=== PATIENT | male | born 1950 | race Caucasian/White ===

== ENCOUNTER → 2018-05-30 | Outpatient (CLI) | payer MEDICARE, BC ==
--- NOTE | 2018-05-30 16:36 | CONS ---
CONSULTATION REASON FOR CONSULTATION: Sleep apnea. This patient is 68. He is coming in accompanied by his due to concerns about sleep apnea. This sleep evaluation was requested by his information manager, who wanted to rule out any other alternative causes causing significant hypertension. The patient does snore; however, he does not have any significant hypersomnia or sleepiness during the day. He wakes up refreshed after sleeping around 8 to 9 hours. He goes to bed around 9 p.m., wakes up at 6:30 a.m. in the morning. It takes him a few minutes to fall asleep, and his sleep is at times fragmented, mainly to urinate. No sleep paralysis. No hallucinations. No cataplexy. He sleeps on his side. He does occasionally take a nap in the afternoon. He used to work at the [employer] and he has also worked in a retirement. Currently he is retired. He is having blood pressure issues, and the patient is on different blood pressure medications for blood pressure control. He had a CVA back in 2016 which caused some expressive aphasia and right-sided weakness. Currently he is adequately rehabilitated and he is ambulating. His speech is also improved. Since his CVA he is feeling a bit more tired and fatigued. He has also hypertension, as mentioned, and diabetes mellitus. PAST MEDICAL HISTORY: 1. 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 2. Hypertension. 3. Impaired hearing. 4. Diabetes mellitus. SURGICAL HISTORY: 1. Broken femur with ORIF back in 2015. 2. Right knee replacement. DRUG ALLERGIES: NOT KNOWN. OUTPATIENT MEDICATION LIST: 1. Prilosec 20 daily. 2. Losartan/hydrochlorothiazide 100/25 one tablet a day. 3. Motrin 800 t.i.d. 4. Clonidine 0.3 t.i.d. 5. Aspirin 81 a day. 6. Metformin 1 gram b.i.d. . 7. Norvasc 10 daily. 8. Amaryl 2 mg p.o. b.i.d. SOCIAL HISTORY: The patient is an ex-smoker. No history of alcoholism. No history of IV drugs. FAMILY HISTORY: Negative for sleep apnea. REVIEW OF SYSTEMS: Twelve-point review of systems was done. Positive findings are all mentioned above in the history of present illness. His gait is still unsteady, as the patient is having right-sided weakness. He has some minimal expressive aphasia still. No grinding of the teeth. No restlessness in the lower extremities. No anxiety or panic attacks. No palpitation or heartburn. No grinding of the teeth. No nocturia. No memory problems or concentration problems. No open wounds or sores. No sweating. No weight loss. No altered mentation. No episodes of hypoglycemia. No other complaints. PHYSICAL EXAMINATION: BP is 177/96, pulse 74, respirations 16, temperature 97.9, saturation 97% on room air. Weight is 182. Height is 5 feet 4 inches, BMI 31.2. Vienna score is 15. Neck size 16- 1/4. GENERAL APPEARANCE: Calm, comfortable. Head is atraumatic, normocephalic. NECK: Supple. No JVD. No goiter or neck masses. LUNGS: Diminished breath sounds bilaterally. HEART: Heart sounds are regular rate and rhythm. Normal S1, S2. No S3, S4. No murmurs. ABDOMEN: Soft, nontender. No organomegaly. EXTREMITIES: No edema. No cyanosis or clubbing. IMPRESSION: 1. Obstructive sleep apnea clinically suspected, under investigation. 2. Chronic fatigue and sleepiness. Vienna Score is 15. 3. Snoring with some occasional nocturnal apneas. 4. Refractory hypertension, currently on 4 different blood pressure medications, including a diuretic, and the blood pressure remains elevated. Rule out underlying obstructive sleep apnea contributing to this refractory hypertension. 5. History of cerebrovascular accident with expressive aphasia and right-sided weakness. 6. Diabetes mellitus. 7. Impaired hearing. PLAN: 1. Tight control of cardiovascular risk factors. 2. Sleep hygiene measures are in general adequate. 3. Cut down on salt intake. 4. Proceed with a screening polysomnogram, looking for any significant sleep breathing disorder contributing to this patient's refractory hypertension and the rest of the symptoms. Will continue to follow. MMODL / IJN: [id number] /
== END | disposition home or self-care (01) ==
LOC: SLEEP 14:23
PROVIDERS: ATTEND Internal Medicine Critical Care Medicine
DX: G47.30 Sleep apnea, unspecified (principal); R06.83 Snoring; R53.82 Chronic fatigue, unspecified; I10 Essential (primary) hypertension; I69.320 Aphasia following cerebral infarction; R53.1 Weakness; E11.9 Type 2 diabetes mellitus without complications; H91.90 Unspecified hearing loss, unspecified ear; Z96.651 Presence of right artificial knee joint; Z98.890 Other specified postprocedural states; Z79.1 Long term (current) use of non-steroidal anti-inflammatories (NSAID); Z79.82 Long term (current) use of aspirin; Z79.84 Long term (current) use of oral hypoglycemic drugs; Z87.891 Personal history of nicotine dependence; Z79.899 Other long term (current) drug therapy
CPT/HCPCS: 99211

== ENCOUNTER 2018-11-18 17:48 | Emergency (ER) | payer MEDICARE, BC ==
[2018-11-18 17:53] VITALS: RESP 16; TEMP 97.9
[2018-11-18] MEDS ORDERED: MAG HYDROX/AL HYDROX/SIMETH 30 ML, HYOSCYAMINE ELIXIR 10 ML, CIMETIDINE HCL 300 MG, LID... PO STA ×4 (18:25)
--- NOTE | 2018-11-18 18:28 | ED ---
General Adult HPI - General Chief complaint: Chest Pain Stated complaint: chest pain Time Seen by Provider: 11/18/18 18:09 Source: patient Mode of arrival: wheelchair Limitations: no limitations - History of Present Illness Initial comments: Dictation was produced using [employer] dictation software. please excuse any grammatical, word or spelling errors. Chief Complaint: 68-year-old male past nuchal history of cancer, diabetes, dyslipidemia presents with abdominal pain and chest burning. History of Present Illness: Patient 68-year-old male. He states he's been having symptoms of chest burning since today. With past couple weeks he's been having some abdominal symptoms. Couple episodes of diarrhea. States that his pain is in his epigastric area radiates upwards into his chest. States that his symptoms are worse with eating. He describes his symptoms as burning in his chest. States that when he does any he feels okay. He has history of appendectomy and pelvic graft surgery for a nonhealing femur fracture. The ROS documented in this emergency department record has been reviewed and confirmed by me. Those systems with pertinent positive or negative responses have been documented in the HPI. All other systems are other negative and/or noncontributory. PHYSICAL EXAM: General Impression: Alert and oriented x3, not in acute distress HEENT: Normocephalic atraumatic, extra-ocular movements intact, pupils equal and reactive to light bilaterally, mucous membranes moist. Cardiovascular: Heart regular rate and rhythm, S1&S2 audible, no murmurs, rubs or gallops Chest: Lungs clear to auscultation bilaterally, no rhonchi, no wheeze, no rales Abdomen: Bowel sounds present, abdomen soft, non-tender, non-distended, no organomegaly Musculoskeletal: Pulses present and equal in all extremities, no peripheral edema Motor: Power 5/5 bilaterally, no focal deficits noted Neurological: CN II-XII grossly intact, no focal motor or sensory deficits noted Skin: Intact with no visualized rashes Psych: Normal affect and mood ED course: 68-year-old male with multiple comorbidities presents with chest burning after eating. Vital signs upon arrival shows blood pressure 218/70, worse vital signs within acceptable limits. Patient is asymptomatic at this time. Laboratory evaluation obtained. CBC, metabolic panel was obtained showing no acute processes. She does not have an anion gap acidosis. Potassium mildly elevated 5.2. Urinalysis is negative. KUB shows ileus. Patient admits as appears comfortable. Abdomen is soft nontender. Patient just started taking Colace recently for assistance with having regular bowel movements. Patient tolerating by mouth at bedside. Hemodynamically stable. Discussed patient that symptoms are likely secondary to decreased bowel transit. Patient given MiraLAX to aid with good transit. Advised follow-up with PCP upon discharge. Told to return to emergency Department with worsening abdominal pain, intractable nausea and vomiting and observation. Patient understandable agreeable to plan. EKG interpretation: Ventricular rate 65, normal sinus rhythm, NC interval 140, QRS 86, QTC 397. No NC prolongation, no QTC prolongation, no ST or T-wave changes noted. Overall, this EKG is unremarkable - Related Data Home Medications Medication Instructions Recorded Confirmed Cetirizine HCl 10 mg PO DAILY 02/09/16 11/18/18 Omeprazole 20 mg PO DAILY 02/09/16 11/18/18 amLODIPine [Norvasc] 10 mg PO DAILY 02/09/16 11/18/18 metFORMIN HCL 1,000 mg PO BID 08/29/16 11/18/18 Aspirin [[place] Aspirin EC] 81 mg PO DAILY 11/18/18 11/18/18 Glimepiride [Amaryl] 2 mg PO BID 11/18/18 11/18/18 Losartan/Hydrochlorothiazide 1 tab PO DAILY 11/18/18 11/18/18 [Losartan-Hctz 100-25 mg Tab] Pioglitazone [Actos] 30 mg PO DAILY 11/18/18 11/18/18 cloNIDine HCL 0.3 mg PO TID 11/18/18 11/18/18 Previous Rx's Medication Instructions Recorded Polyethylene Glycol 3350 [Miralax] 17 gm PO DAILY 3 Days #3 packet 11/18/18 Allergies Allergy/AdvReac Type Severity Reaction Status Date / Time No Known Allergies Allergy Verified 11/18/18 18:10 Review of Systems ROS Statement: Those systems with pertinent positive or pertinent negative responses have been documented in the HPI. ROS Other: All systems not noted in ROS Statement are negative. Past Medical History Past Medical History: Cancer, Diabetes Mellitus, Hyperlipidemia, Hypertension History of Any Multi-Drug Resistant Organisms: MRSA, None Reported Date of last positivie culture/infection: 2010 MDRO Source:: neck Past Surgical History: Appendectomy, Orthopedic Surgery Additional Past Surgical History / Comment(s): right knee Past Psychological History: Anxiety, No Psychological Hx Reported Smoking Status: Former smoker Past Alcohol Use History: None Reported Past Drug Use History: None Reported, Unable to Obtain General Exam Limitations: no limitations Course Vital Signs 11/18/18 17:50 Temperature 97.9 F Pulse Rate 72 Respiratory 16 Rate Blood Pressure 218/78 O2 Sat by Pulse 99 Oximetry Medical Decision Making - Lab Data Result diagrams: 11/18/18 18:29 11/18/18 18:29 Lab Results 11/18/18 11/18/18 11/18/18 Range/Units 18:29 18:29 21:03 WBC 7.9 (3.8-10.6) k/uL RBC 4.20 L (4.30-5.90) m/uL Hgb 12.7 L (13.0-17.5) gm/dL Hct 38.0 L (39.0-53.0) % MCV 90.6 (80.0-100.0) fL MCH 30.4 (25.0-35.0) pg MCHC 33.5 (31.0-37.0) g/dL RDW 13.4 (11.5-15.5) % Plt Count 251 (150-450) k/uL Neutrophils % 71 % Lymphocytes % 20 % Monocytes % 6 % Eosinophils % 1 % Basophils % 1 % Neutrophils # 5.6 (1.3-7.7) k/uL Lymphocytes # 1.6 (1.0-4.8) k/uL Monocytes # 0.5 (0-1.0) k/uL Eosinophils # 0.1 (0-0.7) k/uL Basophils # 0.1 (0-0.2) k/uL Sodium 136 L (137-145) mmol/L Potassium 5.2 H (3.5-5.1) mmol/L Chloride 99 (98-107) mmol/L Carbon Dioxide 26 (22-30) mmol/L Anion Gap 11 mmol/L BUN 29 H (9-20) mg/dL Creatinine 1.22 (0.66-1.25) mg/dL Est GFR (CKD-EPI)AfAm 70 (>60 ml/min/1.73 sqM) Est GFR (CKD-EPI)NonAf 60 (>60 ml/min/1.73 sqM) Glucose 266 H (74-99) mg/dL Calcium 10.2 (8.4-10.2) mg/dL Total Bilirubin 0.5 (0.2-1.3) mg/dL AST 19 (17-59) U/L ALT 29 (21-72) U/L Alkaline Phosphatase 85 (38-126) U/L Total Protein 7.0 (6.3-8.2) g/dL Albumin 4.2 (3.5-5.0) g/dL Lipase 47 (23-300) U/L Urine Color Light Yellow Urine Appearance Clear (Clear) Urine pH 5.5 (5.0-8.0) Ur Specific Jay 1.009 (1.001-1.035) Urine Protein Trace H (Negative) Urine Glucose (UA) 4+ H (Negative) Urine Ketones Negative (Negative) Urine Blood Negative (Negative) Urine Nitrite Negative (Negative) Urine Bilirubin Negative (Negative) Urine Urobilinogen <2.0 (<2.0) mg/dL Ur Leukocyte Esterase Negative (Negative) Disposition Clinical Impression: Ileus Disposition: HOME SELF-CARE Condition: Good Instructions (If sedation given, give patient instructions): Ileus (ED) Prescriptions: Polyethylene Glycol 3350 [Miralax] 17 gm PO DAILY 3 Days #3 packet Is patient prescribed a controlled substance at d/c from ED?: No Referrals: None,Stated [REFERRING] - 1-2 days Time of Disposition: 21:27
[2018-11-18 18:42] LABS: Basophils # (A) 0.1 k/uL (0-0.2); Basophils % (A) 1 %; Eosinophils # (A) 0.1 k/uL (0-0.7); Eosinophils % (A) 1 %; HGB 12.7 gm/dL (13.0-17.5); Lymphocytes # (A) 1.6 k/uL (1.0-4.8); Lymphocytes % (A) 20 %; MCH 30.4 pg (25.0-35.0); MCHC 33.5 g/dL (31.0-37.0); MCV 90.6 fL (80.0-100.0); Mean Platelet Volume 7.6; Monocytes # (A) 0.5 k/uL (0-1.0); Monocytes % (A) 6 %; Neutrophils # (A) 5.6 k/uL (1.3-7.7); Neutrophils % (A) 71 %; Platelet Count 251 k/uL (150-450); RDW 13.4 % (11.5-15.5); WBC 7.9 k/uL (3.8-10.6)
[2018-11-18 18:50] LABS: Albumin 4.2 g/dL (3.5-5.0); Calcium 10.2 mg/dL (8.4-10.2); Potassium 5.2 mmol/L (3.5-5.1); Total Bilirubin 0.5 mg/dL (0.2-1.3)
--- NOTE | 2018-11-18 20:13 | XR ---
EXAMINATION TYPE: XR abdomen acute w cxr DATE OF EXAM: 11/18/2018 COMPARISON: NONE HISTORY: Chest pain TECHNIQUE: 3 views including a chest x-ray. FINDINGS: Heart and mediastinum are normal. Lungs are clear of consolidation. There is no heart failure. Ther e are chest leads. Bony thorax is intact. There is a few distended gas-filled loops of small bowel in the mid abdomen. There is degenerative disc space narrowing the lower lumbar spine with slight dextr oscoliosis. There are no pathologic calcifications over the kidneys. There is no sign of free air. IMPRESSION: No active cardiopulmonary disease. There is evidence of small bowel ileus.
[2018-11-18 21:14] LABS: Appearance,Urine Clear (Clear); Bilirubin,Urine Negative (Negative); Blood,Urine Negative (Negative); Color,Urine Light Yellow; Glucose,Urine (UA) 4+ (Negative); Ketones,Urine Negative (Negative); Leukocyte Esterase,Urine Negative (Negative); Nitrite,Urine Negative (Negative); PH, Urine 5.5 (5.0-8.0); Protein,Urine Trace (Negative); Specific Gravity,Urine 1.009 (1.001-1.035); Urobilinogen,Urine <2.0 mg/dL (<2.0)
[2018-11-18 21:34] VITALS: BP 134/80; PULSE 54
== END 2018-11-18 21:34 | disposition home or self-care (01) ==
LOC: EC 17:48
DX: K56.7 Ileus, unspecified (principal); R07.9 Chest pain, unspecified; E87.6 Hypokalemia; E11.9 Type 2 diabetes mellitus without complications; E78.5 Hyperlipidemia, unspecified; I10 Essential (primary) hypertension; Z85.9 Personal history of malignant neoplasm, unspecified; Z86.14 Personal history of Methicillin resistant Staphylococcus aureus infection; Z90.49 Acquired absence of other specified parts of digestive tract; Z87.891 Personal history of nicotine dependence; Z98.890 Other specified postprocedural states; Z79.84 Long term (current) use of oral hypoglycemic drugs; Z79.82 Long term (current) use of aspirin; Z79.899 Other long term (current) drug therapy
CPT/HCPCS: 36415; 74022; 80053; 81003; 83690; 85025; 99285

== ENCOUNTER 2018-12-08 15:28 | Emergency (ER) | payer MEDICARE, BC ==
[2018-12-08 15:36] VITALS: RESP 18
--- NOTE | 2018-12-08 16:18 | ED ---
General Adult HPI - General Chief complaint: Extremity Problem,Nontraumatic Stated complaint: Right Foot discoloration Time Seen by Provider: 12/08/18 15:59 Source: patient, family Mode of arrival: ambulatory Limitations: no limitations - History of Present Illness Initial comments: Patient is a pleasant [age]-year-old male presenting to the emergency Department with complaints of right foot pain. Patient has had symptoms for months since his leg fracture. Patient has had chronic erythematous discoloration of his toes. Patient does get discomfort that increases with walking. Patient states today there was a blackish type discoloration to the area just proximal to the toes. Discomfort was increased greatly during this time. Symptoms have now near resolved. Color has returned back to baseline. There was question previously as far as how good patient's foot pulses were on previous evaluations. Patient denies any swelling. No calf pain. No leg pain. - Related Data Home Medications Medication Instructions Recorded Confirmed Cetirizine HCl 10 mg PO DAILY 02/09/16 11/18/18 Omeprazole 20 mg PO DAILY 02/09/16 11/18/18 amLODIPine [Norvasc] 10 mg PO DAILY 02/09/16 11/18/18 metFORMIN HCL 1,000 mg PO BID 08/29/16 11/18/18 Aspirin [[place] Aspirin EC] 81 mg PO DAILY 11/18/18 11/18/18 Glimepiride [Amaryl] 2 mg PO BID 11/18/18 11/18/18 Losartan/Hydrochlorothiazide 1 tab PO DAILY 11/18/18 11/18/18 [Losartan-Hctz 100-25 mg Tab] Pioglitazone [Actos] 30 mg PO DAILY 11/18/18 11/18/18 cloNIDine HCL 0.3 mg PO TID 11/18/18 11/18/18 Previous Rx's Medication Instructions Recorded Polyethylene Glycol 3350 [Miralax] 17 gm PO DAILY 3 Days #3 packet 11/18/18 Cephalexin [Keflex] 500 mg PO QID #28 cap 12/08/18 Allergies Allergy/AdvReac Type Severity Reaction Status Date / Time No Known Allergies Allergy Verified 12/08/18 15:36 Review of Systems ROS Statement: Those systems with pertinent positive or pertinent negative responses have been documented in the HPI. ROS Other: All systems not noted in ROS Statement are negative. Constitutional: Denies: fever Eyes: Denies: eye pain ENT: Denies: ear pain Respiratory: Denies: cough Cardiovascular: Denies: chest pain Endocrine: Denies: fatigue Gastrointestinal: Denies: vomiting Genitourinary: Denies: dysuria Musculoskeletal: Denies: back pain Skin: Reports: as per HPI Neurological: Denies: weakness Past Medical History Past Medical History: Cancer, Diabetes Mellitus, Hyperlipidemia, Hypertension History of Any Multi-Drug Resistant Organisms: MRSA, None Reported Date of last positivie culture/infection: 2010 MDRO Source:: neck Past Surgical History: Appendectomy, Orthopedic Surgery Additional Past Surgical History / Comment(s): right knee Past Psychological History: Anxiety, No Psychological Hx Reported Smoking Status: Former smoker Past Alcohol Use History: None Reported Past Drug Use History: None Reported, Unable to Obtain General Exam Limitations: no limitations General appearance: alert, in no apparent distress Head exam: Present: atraumatic Eye exam: Present: normal appearance Respiratory exam: Present: normal lung sounds bilaterally Cardiovascular Exam: Present: regular rate, normal rhythm. Absent: irregular rhythm Expanded Peripheral pulses: 1+: Posterior Tibialis (R), Posterior Tibialis (L), Dorsalis Pedis (R), Dorsalis Pedis (L), 2+: Femoral (R), Femoral (L) GI/Abdominal exam: Present: soft. Absent: tenderness Extremities exam: Absent: pedal edema, calf tenderness Neurological exam: Present: alert Psychiatric exam: Present: normal affect, normal mood Skin exam: Present: other (Reddish discoloration of the toes.) Course Vital Signs 12/08/18 15:33 Temperature 98.0 F Pulse Rate 74 Respiratory 18 Rate Blood Pressure 158/66 O2 Sat by Pulse 98 Oximetry - Reevaluation(s) Reevaluation #1: 12/08/18 16:19 Case was discussed in detail with Dr. Chamorro who agrees patient is safe for discharge and will follow-up on Monday with this patient. Patient and family are updated. 12/08/18 16:33 Pulses were diminished, more so on the right foot than the left. These are easily confirmed with Doppler. EKG Findings - EKG Comments: EKG Findings:: Normal sinus rhythm at 61. NH 1:30. QRS 78. QT 370. QTc 372. Normal axis. Normal QRS. No acute ST change. Medical Decision Making - Medical Decision Making Patient was updated on plan. Patient reevaluated and unchanged. Patient will be covered with antibiotics for possible cellulitis component. Patient is given instructions on things to look for to return to emergency department - Radiology Data Radiology results: image reviewed (Foot x-ray reveals no acute abnormality) Disposition Clinical Impression: Arterial insufficiency Disposition: HOME SELF-CARE Condition: Stable Instructions (If sedation given, give patient instructions): Peripheral Artery Disease (ED) Additional Instructions: Please follow-up Monday with Dr. Chamorro. Full aspirin daily until otherwise directed by Dr. Chamorro. Return for black discoloration, purple discoloration, loss of color, increased pain, swelling or fever, worsening symptoms or any other concerns. Prescriptions: Cephalexin [Keflex] 500 mg PO QID #28 cap Is patient prescribed a controlled substance at d/c from ED?: No Referrals: Mimi Hurst MD [Primary Care Provider] - 1-2 days Julius Chamorro MD [STAFF PHYSICIAN] - 1-2 days Time of Disposition: 17:03
--- NOTE | 2018-12-08 16:44 | XR ---
EXAMINATION TYPE: XR foot complete RT DATE OF EXAM: 12/08/2018 CLINICAL HISTORY: Toe redness. Prior foot fracture. TECHNIQUE: Frontal, lateral, and oblique images of the right foot are obtained. COMPARISON: None FINDINGS: Flexion deformity slightly limited evaluation of the distal interphalangeal joints. No sub cutaneous emphysema or radiopaque foreign body is seen. No osseous sequela of osteomyelitis. No erosi ve change or periosteal reaction. Small Achilles enthesophyte/heel spurs noted. There is no acute fra cture/dislocation evident in the right foot. There is a healed fracture deformity the base of the fi fth metatarsal. The joint spaces in the right foot appear within normal limits. The overlying soft t issue appears unremarkable. IMPRESSION: There is no acute fracture or dislocation in the right foot. No radiographic sequela of osteomyelitis in this patient with stated toe redness.
[2018-12-08] MEDS ORDERED: ASPIRIN 81 MG PO STA (17:00)
[2018-12-08 17:35] VITALS: BP 159/76; PULSE 69; TEMP 98.6
== END 2018-12-08 17:33 | disposition home or self-care (01) ==
LOC: EC 15:28
DX: I77.1 Stricture of artery (principal); E78.5 Hyperlipidemia, unspecified; I10 Essential (primary) hypertension; E11.9 Type 2 diabetes mellitus without complications; Z87.891 Personal history of nicotine dependence; Z79.82 Long term (current) use of aspirin; Z79.84 Long term (current) use of oral hypoglycemic drugs; Z79.899 Other long term (current) drug therapy; Z86.14 Personal history of Methicillin resistant Staphylococcus aureus infection; Z85.9 Personal history of malignant neoplasm, unspecified
CPT/HCPCS: 93005; 99283